=== PATIENT | male | born 1970 | race Caucasian/White ===

== ENCOUNTER 2025-05-25 12:57 | Emergency (ER) | payer BC ==
[2025-05-25] MEDS: Diphtheria,Pertussis(Acell),Tetanus Vaccine 0.5 ML Syringe IM ONE (14:10)
[2025-05-25] MEDS: Bacitracin Oint 1 GM U/D Packet TOP ONE (14:10)
== END 2025-05-25 14:15 | disposition home or self-care (01) ==
LOC: LB.ED 12:57
DX: S60.453A Superficial foreign body of left middle finger, initial encounter (principal); R23.8 Other skin changes; Z23 Encounter for immunization; Z79.899 Other long term (current) drug therapy; W45.8XXA Other foreign body or object entering through skin, initial encounter; Y93.89 Activity, other specified
CPT/HCPCS: 90471; 90715; 99283; 99283-25; J2003